=== PATIENT | male | born 1945 | race Caucasian/White ===

== ENCOUNTER → 2024-12-12 | Outpatient (CLI) | payer MEDICARE, BC, SELFPAY ==
--- NOTE | 2024-12-12 14:28 | XR_ITS ---
EXAMINATION: Cervical spine, 5 views Technique: Cervical spine AP, AP odontoid, lateral, bilateral obliques, 5 views Exam date and time: December 12, 2024, 1431 hours INDICATIONS: Thickness 2 weeks, history cervical spine surgery COMPARISON: April 06, 2021. 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
== END | disposition home or self-care (01) ==
PROVIDERS: PCP Family Medicine; Referring Provider Orthopaedic Surgery; Visit Provider Orthopaedic Surgery
DX: M43.22 Fusion of spine, cervical region (principal)
CPT/HCPCS: 72050